=== PATIENT | male | born 1935 | race Caucasian/White ===

== ENCOUNTER → 2019-06-16 | Outpatient (CLI) | payer MEDICARE ==
--- NOTE | 2019-06-16 13:05 | US ---
EXAMINATION TYPE: US kidneys/renal and bladder DATE OF EXAM: 06/16/2019 COMPARISON: NONE CLINICAL HISTORY: R94.4 ABN results of kidney function studies. Abnormal renal function test. EXAM MEASUREMENTS: Right Kidney: 9.1 x 4.7 x 3.7 cm Left Kidney: 9.6 x 4.7 x 3.6 cm Right Kidney: No hydronephrosis or masses seen Left Kidney: No hydronephrosis or masses seen Bladder: wnl Bilateral Jets seen: yes There is no evidence for hydronephrosis at this point in time. No nephrolithiasis is seen. No marie s are identified. The urinary bladder is anechoic. Bilateral ureteral jets are seen. IMPRESSION: No hydronephrosis or nephrolithiasis. No sonographic sequela of medical renal disease.
== END | disposition home or self-care (01) ==
LOC: RADUSWWP 12:00
PROVIDERS: ATTEND Family Medicine
DX: R94.4 Abnormal results of kidney function studies (principal)
CPT/HCPCS: 76770